=== PATIENT | female | born 1995 | race Caucasian/White ===

== ENCOUNTER 2018-03-05 17:25 | Emergency (ER) | payer OTHER ==
[2018-03-05 17:34] VITALS: RESP 18; TEMP 98.4; O2SAT 99
[2018-03-05] MEDS ORDERED: ONDANSETRON 4 MG ODT BU ONE (17:50)
[2018-03-05] MEDS ORDERED: ALUMINUM/MAGNESIUM 30 ML SUS PO ONE (17:50)
[2018-03-05] MEDS ORDERED: LIDOCAINE HCL 2% (VISCOUS) 20 ML SOL PO ONE (17:50)
[2018-03-05] MEDS ORDERED: PANTOPRAZOLE SODIUM 40 MG/10 ML PDS IV ONE (17:51)
[2018-03-05] MEDS ORDERED: ALUMINUM/MAGNESIUM 30 ML SUS ONE (18:12)
[2018-03-05] MEDS ORDERED: PANTOPRAZOLE SODIUM 40 MG/10 ML PDS ONE (18:12)
[2018-03-05] MEDS ORDERED: LIDOCAINE HCL 2% (VISCOUS) 20 ML SOL ONE (18:12)
[2018-03-05 18:17] LABS: APPEARANCE,URINE Clear; BILIRUBIN,URINE NEGATIVE (NEGATIVE); COLOR,URINE Yellow; GLUCOSE, URINE (UA) NEGATIVE (NEGATIVE); KETONES,URINE NEGATIVE (NEGATIVE); LEUKOCYTE ESTERASE ,URINE NEGATIVE (NEGATIVE); NITRATE,URINE NEGATIVE (NEGATIVE); OCCULT BLOOD,URINE TRACE INTACT (NEG-TRACE); UROBILINOGEN,URINE 0.2 (0.2-1.0 EU)
[2018-03-05 18:28] LABS: BASOPHILS % (AUTO) 1 % (0-3); EOSINOPHILS % (AUTO) 4 % (0-9); HEMATOCRIT 38 % (35-47); LYMPHOCYTES % (AUTO) 26.7 % (10-50); MEAN CORPUSCULAR HGB CONC 33.8 gm/dl (32.0-36.0); MEAN CORPUSCULAR VOLUME 89 fL (81-99); MONOCYTES % (AUTO) 9.2 % (0-12); NEUTROPHILS % (AUTO) 59.1 % (37-80)
[2018-03-05 18:35] LABS: BACTERIA NEGATIVE (< 1+); CRYSTALS NEGATIVE (0-3 AVE/HPF); EPITHELIAL CELLS NEGATIVE (SQUAMOUS); RBC,URINE 0-1 (0-3AV/HPF); WBC,URINE NEG (0-5AV/HPF)
[2018-03-05 18:42] LABS: ALBUMIN 3.5 gm/dl (3.4-5.0); BILIRUBIN,TOTAL 0.2 mg/dl (0.2-1.0); CALCIUM 9.2 mg/dl (8.5-10.1); CARBON DIOXIDE 25.3 mEq/L (21-32); CREATININE 0.91 mg/dl (0.60-1.00); POTASSIUM 3.6 mMol/L (3.5-5.1); TOTAL PROTEIN 6.9 gm/dl (6.4-8.2)
[2018-03-05 18:48] VITALS: BP 131/86; PULSE 55
== END 2018-03-05 19:11 | disposition home or self-care (01) | DRG 392 ==
LOC: ED 17:25
DX: K21.9 Gastro-esophageal reflux disease without esophagitis (principal); J06.9 Acute upper respiratory infection, unspecified
CPT/HCPCS: 71045; 80053; 81001; 82150; 85025; 87430; 96374; 99282; 99283; A9270-GY